=== PATIENT | female | born 1945 | race Caucasian/White ===

== ENCOUNTER 2021-08-12 12:51 | Outpatient (REF) | payer MEDICARE, BC, SELFPAY ==
--- NOTE | ~2021-08-12 | MM_ITS ---
EXAMINATION: MM SCREENING DIGITAL BREAST TOMOSYNTHESIS, BILATERAL CLINICAL INFORMATION: Screening. Asymptomatic. The lifetime risk of breast cancer based on the Tyrer-Cuzick Model is 1%. COMPARISON: Mammography: None TECHNIQUE: Digital breast tomosynthesis is performed in both the craniocaudal and mediolateral oblique views along with computer-aided detection (CAD). Synthesized 2D images are generated from the tomosynthesis. FINDINGS: The breasts are almost entirely fatty (ACR BI-RADS breast composition Category a). No suspicious mass or grouping of microcalcifications is seen within the right breast. Within the left breast inferiorly, there is a 3 mm partially circumscribed, slightly lobular density for which ultrasound is recommended. About the upper outer aspect of the left breast, there is a circumscribed 5 mm density approximately 6 cm from the nipple which may represent intramammary lymph node. Ultrasound of this is also recommended. MM/MM tomosynthesis screening BI IMPRESSION: 2 left breast densities for further evaluation with ultrasound. ASSESSMENT: BI-RADS 0: Incomplete - Need Additional Imaging Evaluation RECOMMENDATION: Targeted left breast ultrasound
== END 2021-08-12 12:52 | disposition home or self-care (01) ==
LOC: HO.MAMMO 12:51
PROVIDERS: PCP Internal Medicine; Visit Provider Internal Medicine
DX: Z12.31 Encounter for screening mammogram for malignant neoplasm of breast (principal)
CPT/HCPCS: 77063; 77067

== ENCOUNTER 2021-08-26 10:34 | Outpatient (REF) | payer MEDICARE, BC, SELFPAY ==
--- NOTE | ~2021-08-26 | US_ITS ---
EXAMINATION: US DIAGNOSTIC ULTRASOUND BREAST, LEFT CLINICAL INFORMATION: Recall from screening for 2 nodules left breast mid 1:00 and mid 6:00 position, respectively. COMPARISON: Mammography 08/12/2021; outside mammography 02/05/2018, 01/30/2017, 12/21/2014 ([facility]). TECHNIQUE: Ultrasound of the left breast is performed with real-time chairez scale imaging and color Doppler. Imaging is targeted to the 10:00 through 2:00 position as well as the 4:00 through 6:00 position. Patient is imaged supine and semiupright with arm both up and down. FINDINGS: Neither nodule is visualized with ultrasound. There is no cystic or solid mass or architectural abnormality or focal duct ectasia. The respective of the biopsy ultrasound correlate, the nodularity for recall are both stable from prior outside mammograms dating back to 2014 consistent with benign findings. Results are discussed with the patient at time of visit. US/US breast LT limited IMPRESSION: Although no ultrasound correlate is demonstrated for the 2 circumscribed nodules left breast, comparison with remote outside mammography demonstrates no change consistent with benign nodularity. ASSESSMENT: BI-RADS 2: Benign RECOMMENDATION: Routine annual mammography screening. This patient's information was entered into a reminder system with a target due date for their next mammogram.
== END 2021-08-26 10:35 | disposition home or self-care (01) ==
LOC: HO.MAMMO 10:34
PROVIDERS: PCP Internal Medicine; Visit Provider Internal Medicine
DX: N63.21 Unspecified lump in the left breast, upper outer quadrant (principal); N63.20 Unspecified lump in the left breast, unspecified quadrant
CPT/HCPCS: 76642

== ENCOUNTER 2021-11-12 08:50 | Outpatient (REF) | payer MEDICARE, BC, SELFPAY ==
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
== END 2021-11-12 08:51 | disposition home or self-care (01) ==
LOC: HO.SH 08:50
PROVIDERS: Visit Provider Internal Medicine
DX: H90.3 Sensorineural hearing loss, bilateral (principal)
CPT/HCPCS: 92557; 92567

== ENCOUNTER 2024-07-25 13:58 | Outpatient (REF) | payer MEDICARE, SELFPAY ==
--- OUTSIDE RECORDS SUMMARY | 2024-07-25 16:37 | XMS_ITS | Encounter Summary ---
Author Organization [employer] Address [address] [facility] 7[address] [place] [address] Care Team Providers Care Cable Ferryboat Operator Name Role Phone Lis Lau MD Primary Care Provider [phone] Reason for Visit * Reason Comments Med Refill Encounter Details Date Type Department Care Team ([facility] st Contact Info) Description 07/18/[address] [facility] [address] [place] [address] Lis Lau MD [address] [place] [address] Social History Tobacco Use Types Packs/Day Years Used Date Smoking Tobacco: Never Smokeless Tobacco: Never Alcohol Use Standard Drinks/Week Comments Never 0 (1 standard drink = 0.6 oz pur e alcohol) Housing Stability Answer Date Recorded What is your housing situation today? I have mike sellers 02/17/[address] you li ve. Do you have problems with any of the following? None of the above 02/17/2024 Food Insecurity Answer Date Recorded Within the past 12 months, y ou worried that your food would run out before you got money to buy more: Never True 02/17/2024 Within the past 12 months,th e food you bought just didn't last and you didn't have enough money to get more: Never True Transportation Answer Date Recorded In the past 12 months, has l ack of transportation kept you from medical appts, meetings, work or from getting things needed for daily living? No 02/17/2024 Utilities Answer Date Recorded In the past 12 months, has t he electric, gas, oil or water company threatened to shut off services in your home? No 02/17/2024 Internet Access Answer Date Recorded Internet Access Q1 No 02/17/2024 Internet Access Q2 I do not want or need it 01/24 Comments Unknown Sex and Gender Information Value Date Recorded Sex Assigned at Female 03/24/2022 10:36 AM EDT Legal Sex Female 10:36 AM EDT Gender Identity Female 03/24/2022 10:36 AM EDT Sexual Orientation Don't know 03/24/2022 10 :36 AM EDT documented as of this encounter Plan of Treatment Not on file documented as of this encounter Visit Diagnoses Not on filedocumented in this encounter Care Teams Cable Ferryboat Operator Relationship Specialty Start Date End Date Lis Lau MD [address] [place] [id number] PCP - General Internal Medicine 03/28/19 documented as of this encounter
--- OUTSIDE RECORDS SUMMARY | 2024-07-25 16:37 | XMS_ITS | Encounter Summary ---
Author Organization [employer] Address [address] [facility] 7t [place] [address] Care Team Providers Care Insurance Claim Auditor Name Role Phone Lis Lau MD Primary Care Provider [phone] Reason for Visit * Reason Comments Med Refill Encounter Details Date Type Department Care Team (Late st Contact Info) Description 06/01/2023 Refill [facility] PEDS [address] [place] [address] Lis Lau MD [address] [place] [address] Social History Tobacco Use Types Packs/Day Years Used Date Smoking Tobacco: Never Assessed Comments Unknown Sex and Gender Information Value [...] on filedocumented in this encounter Care Teams Insurance Claim Auditor Relationship Specialty Start Date End Date Lis Lau MD [address] [place] [address] PCP - General Internal Medicine 03/28/19 documented as of this encounter
--- OUTSIDE RECORDS SUMMARY | 2024-07-25 16:37 | XMS_ITS | Encounter Summary ---
Author Organization [employer] Address [address] [facility] [address] [place] [address] Care Team Providers Care Bit Grinder Name Role Phone Lis Lau MD Primary Care Provider [phone] Reason for Visit * Reason Comments Med Refill Encounter Details Date Type Department Care Team (Late st Contact Info) Description 01/08/2024 Refill [facility] MED & PEDS [address] [place] [address] Lis Lau MD [address] [place] [address] Essential (primary) hypertension Social History Tobacco Use Types Packs/Day Years [...] documented as of this encounter Visit Diagnoses Diagnosis Essential (primary) hypertension Unspecified essential hypertension documented in this encounter Care Teams Bit Grinder Relationship Specialty Start Date End Date Lis Lau MD [address] [place] [address] PCP - General Internal Medicine 03/28/19 documented as of this encounter
--- OUTSIDE RECORDS SUMMARY | 2024-07-25 16:37 | XMS_ITS | Encounter Summary ---
Author Organization [employer] Address [address] [place] [address] [address] [place] [address] Care Team Providers Care Circulation Tender Name Role Phone Lis Lau MD Primary Care Provider [phone] Reason for Referral * Consultation (Routine) - Pending Review Specialty Diagnoses / Procedures Referred By Sj oneil Referred To Contact Neurology Diagnoses Memory disturbance Lis Lau MD [address] [place] [address] Phone: tel: fax: Referral ID Status Reason Start Date Expiration Date Visits Requested Visits Authorized [id number] Pending Review Specialty Services Required 07/25/2024 07/25/2025 1 1 Reason for Visit * Reason Comments Follow-up Encounter Details Date Type Department Care Team (Latest Contact Info) Description 07/25/2024 1:00 PM EST Office Visit [facility] MED & PEDS [address] [place] [address] Lis Lau MD [address] [place] [address] Hypercholesterolemia (Primary Dx); Primary hypertension; Dietary counseling; Exercise counseling; Memory disturbance; Encounter for immunization Social History Tobacco Use Types Packs/Day Years Used Date Smoking Tobacco: Never Smokeless Tobacco: Never Alcohol Use Standard Drinks/Week Comments Never 0 (1 standard drink = 0.6 oz pur e alcohol) Depression Answer Date Recorded Patient Health Questionnaire-9 Score 0 07/25/2024 Patient Health Questionnaire-9 Score 0 07/25/2024 Last PHQ-9: Questionnaire Data Not on file 0 07/25/2024 Housing Stability Answer Date Recorded What is [...] off services in your home? No 02/17/2024 Depression Answer Date Recorded Patient Health Questionnaire-2 Score 0 07/25/2024 Internet Access Answer Date Recorded Internet Access [...] AM EDT documented as of this encounter Last Filed Vital Signs Vital Sign Reading Time Taken Comments Blood Pressure 184/66 07/25/2024 1:14 PM EST Pulse 62 07/25/2024 1:14 PM EST Temperature 36.6 ??C (97.9 ??F) 07/25/2024 1:14 PM ES T Respiratory Rate 20 07/25/2024 1:14 PM EST Oxygen Saturation 94% 07/25/2024 1:14 PM EST Inhaled Oxygen Concentration - - Weight 60.3 kg (133 lb) 07/25/2024 1:14 PM EST Height 156.2 cm (5' 1.5 ) 07/25/2024 1:14 PM EST Body Mass Index 24.72 07/25/2024 1:14 PM EST documented in this encounter Plan of Treatment Scheduled Orders Name Type Priority Associated Diagnoses Orde r Schedule Vitamin B12/Folate, Serum Panel Lab Routine Memory disturbance Expected: 07/25/2024, Expires: 07/25/2025 Scheduled Referrals Name Type Priority Associated Diagnoses Orde r Schedule Referral to Neurology Outpatient Referral Routine Memory disturbance Expected: 07/25/2024 (Approximate), Expires: 07/25/2025 documented as of this encounter Visit Diagnoses Diagnosis Hypercholesterolemia- Primary Pure hypercholesterolemia Primary hypertension Unspecified essential hypertension Dietary counseling Dietary surveillance and counseling Exercise counseling Memory disturbance Memory loss Encounter for immunization documented in this encounter Additional Health Concerns Assessment Noted Time PHQ-9 Depression Total Score: 0 07/26/19 25 2:13 PM EST documented as of this encounter Care Teams Circulation Tender Relationship Specialty Start Date End Date Lis Lau MD [address] [place] [phone] PCP - General Internal Medicine 03/28/19 documented as of this encounter
--- OUTSIDE RECORDS SUMMARY | 2024-07-25 16:37 | XMS_ITS | Encounter Summary ---
Author Organization [employer] Address [address] [facility] [address] [place] [address] Care Team Providers Care Grinder Chipper Name Role Phone Lis Lau MD Primary Care Provider [phone] Encounter Details Date Type Department Care Team ([facility] st Contact Info) Description 10/01/2022 Orders Only [facility] CH[facility] MED & PEDS [address] [place], [place] [phone] Marita Carmona LPN Social History Tobacco Use Types Packs/Day Years [...] on filedocumented in this encounter Care Teams Grinder Chipper Relationship Specialty Start Date End Date Lis Lau MD [address] [place] [address] PCP - General Internal Medicine 03/28/19 documented as of this encounter
--- OUTSIDE RECORDS SUMMARY | 2024-07-25 16:37 | XMS_ITS | Encounter Summary ---
Author Organization [employer] Address [address] [facility] [address] [place] [address] Care Team Providers Care Tennis Centre Manager Name Role Phone Lis Lau MD Primary Care Provider [phone] Encounter Details Date Type Department Care Team (Latest Contact Info) Description 07/25/2024 Travel Social History Tobacco Use Types Packs/Day Years [...] Diagnoses Not on filedocumented in this encounter Additional Health Concerns Assessment Noted Time PHQ-9 Depression Total Score: 0 07/26/19 25 2:13 PM EST documented as of this encounter Care Teams Tennis Centre Manager Relationship Specialty Start Date End Date Lis Lau MD [address] [place] [address] PCP - General Internal Medicine 03/28/19 documented as of this encounter
--- OUTSIDE RECORDS SUMMARY | 2024-07-25 16:37 | XMS_ITS | Encounter Summary ---
Author Organization [employer] Address [address] [facility] [address] [place] [address] Care Team Providers Care Instrument Repair Specialist Name Role Phone Lis Lau MD Primary Care Provider [phone] Reason for Visit * Reason Onset Date Comments chart prep 07/22/2024 Encounter Details Date Type Department Care Team ([facility] Contact Info) Description 07/22/2024 Telephone [facility] MED [facility] P[facility] [address] [place] [address] Lis Lau MD [address] [place] [address] chart prep Social History Tobacco Use Types Packs/Day Years Used Date Smoking Tobacco: Never Smokeless Tobacco: Never Alcohol Use Standard Drinks/Week Comments Never 0 (1 standard drink = 0.6 oz pur e alcohol) Housing Stability Answer Date Recorded What is your housing situation today? I have mike[employer] sellers 02/17/[address] you [...] the past 12 months, has t he [email or web address], gas, oil or water [employer] threatened to shut off services in your [...] AM EDT documented as of this encounter Miscellaneous Notes * Telephone Encounter - Alexia Turk [place] - 07/22/2024 9:02 AM EST Chart Prep Labs: not done Images: done Vaccines due: yes Referrals: complete Screenings: Overdue care gaps: Sbirt, SDOH, PHQ-9 documented in this encounter Plan of Treatment Not on file documented as of this encounter Visit Diagnoses Not on filedocumented in this encounter Care Teams Instrument Repair Specialist Relationship Specialty Start Date End Date Lis Lau MD [address] [place] [id number] PCP - General Internal Medicine 03/28/19 documented as of this encounter
--- OUTSIDE RECORDS SUMMARY | 2024-07-25 16:37 | XMS_ITS | Clinical Summary ---
Author Organization [employer] Address [address] [facility] 7t [place] [address] Care Team Providers Care Salesperson Furs Name Role Phone Lis Lau MD Primary Care Provider [phone] Allergies Active Allergy Reactions Criticality Noted Date Comments Penicillin G Rash Low 02/25/2024 Medications metoprolol succinate XL (Toprol-XL) 50 MG 24 hr tabletIndication s:Essential (primary) hypertension TAKE 1 TABLET BY MOUTH EVERY DAY 90 tablet 4 Active metoprolol succinate XL (Toprol-XL) 50 MG 24 hr tablet Take 1 tablet (50 mg) by mouth Once per day. Do not crush or chew. 30 tablet 11 4 Active KLOR-CON 20 MEQ ER tablet TAKE 1 TABLET BY MOUTH EVERY DAY WITH FOOD 90 tablet 3 4 Active hydroCHLOROthiaz victorino (HYDRODiuril) 25 MG tabletIndication s:Essential (primary) hypertension Take 1 tablet (25 mg) by mouth Once per day. 90 tablet 3 4 Active citalopram (CeleXA) 10 MG tablet TAKE 1 TABLET (10 MG) BY MOUTH ONCE PER DAY. 90 tablet 1 5 Active Blood Pressure kit To check the BP 3 times a week. 1 kit 5 Active citalopram (CeleXA) 10 MG tablet Take 1 tablet (10 mg) by mouth Once per day. 90 tablet 1 4 025 Discontinued Active Problems Problem Noted Date Diagnosed Date Cobalamin deficiency 12/28/2023 Hypercholesterolemia 12/28/2023 Hypertensive disorder 12/28/2023 Hypokalemia 12/28/2023 IFG (impaired fasting glucose) 12/28/2023 Vitamin D deficiency 12/28/2023 Encounters Date Type Department Care Team Description 07/25/2024 1:00 PM EST Office Visit [facility] [address] [place] [address] Lis Lau MD Hypercholesterolemia (Primary Dx); Primary hypertension; Dietary counseling; Exercise counseling; Memory disturbance; Encounter for immunization 07/25/2024 Travel 07/22/2024 Telephone [facility] [address] [place], [place] [phone] Lis Lau MD chart prep 07/18/2024 Refill [facility] [address] [place], [place] [phone] Lis Lau MD 06/06/2024 Telephone [facility] [address] [place] [address] Lis Lau MD recall appt (Pt needs appt) from Last 3 Months Immunizations Name Administration Dates Next Due Moderna Covid-19 Vaccine 12+ 09/10/2021,08/13/19 22 Tdap 07/25/2024 Social History Tobacco Use Types Packs/Day Years Used Date Smoking Tobacco: Never Smokeless Tobacco: Never Tobacco Cessation:Counseling Given: No Alcohol Use Standard Drinks/Week Comments Never 0 (1 standard drink = 0.6 oz pur e alcohol) Depression Answer Date Recorded Patient Health Questionnaire-9 Score 0 07/25/2024 Patient Health Questionnaire-9 Score 0 07/25/2024 Last PHQ-9: Questionnaire Data Not on file 0 07/25/2024 Housing Stability Answer Date Recorded What is your housing situation today? I have mike marlo 02/17/[address] you li [...] Don't know 03/24/2022 10 :36 AM EDT Last Filed Vital Signs Vital Sign Reading [...] Mass Index 24.72 07/25/2024 1:14 PM EST Plan of Treatment Health Maintenance Due Date Last Done Comments Zoster Vaccines (1 of 2) 1994 RSV Patients and Patients Aged 60 years or older (1 - 1-dose 75+ series) 2019 Influenza Vaccine (#1) 2024 Postp oned from 01/24/2024 (Patient Refused) SDOH Screening 02/16/2025 02/17/2024 COVID-19 Vaccine (3 - 2023-2 5 season) 2025 09/10/2021, 08/12/2021 Postponed from 01/24/2024 (Patient Refused) Pneumococcal Vaccine: 50+ Years (1 of 1 - PCV) 02/24/2025 Postponed from 05/27 (Patient Refused) Alcohol/Substance Use Screening 07/25/2025 07/25/2024 Depression Screening 07/25/2025 07/25/2024, 07/25/2024 Tobacco Screening 07/25/2025 07/25/2024 Lipid Panel 03/29/2026 03/29/2021 DTaP/Tdap/Td Vaccines (2 - T d or Tdap) 07/25/2034 07/25/2024 HIB Vaccines Aged Out No longer eligi ble based on patient's age to complete this topic HPV Vaccines Aged Out No longer eligi ble based on patient's age to complete this topic Hepatitis A Vaccines Aged Out No long er eligible based on patient's age to complete this topic Hepatitis B Vaccines Aged Out No long er eligible based on patient's age to complete this topic IPV Vaccines Aged Out No longer eligi ble based on patient's age to complete this topic Meningococcal Vaccine Aged Out No nikko bernard eligible based on patient's age to complete this topic RSV under 20 months Aged Out No longe r eligible based on patient's age to complete this topic Rotavirus Vaccines Aged Out No longer eligible based on patient's age to complete this topic Procedures Procedure Name Priority Date/Time Associated Diagnosis Comments LIPID PANEL, STANDARD Routine 03/29/2021 10:04 AM EDT from Last 3 Months or Most Recently Relevant to Health Maintenance Results * (ABNORMAL) LIPID PANEL, STANDARD (03/29/2021 10:04 AM EDT) Chol/HDLC Ratio 4.8 <5.0 (calc) [facility] Cholesterol, Total 222(H) <200 mg/dL [facility] HDL Cholesterol 46(L) > OR = 50 mg/dL [facility] LDL Cholesterol 138(H) mg/dL (calc) [facility] Comment: Reference range: <100 ?? Desirable range <100 mg/dL for primary prevention; ?? <70 mg/dL for patients with CHD or diabetic patients ?? with > or = 2 CHD risk factors. ?? LDL-C is now calculated using the Madhav-Covarruibas ?? calculation, which is a validated novel method providing ?? better accuracy than the Friedewald equation in the ?? estimation of LDL-C. ?? Madhav PACHECO et al. IFRAH. 2013;310(19): 6753-8232 ?? (http://[employer] Water.Acunote/faq/DZF583) Non-HDL Cholesterol 176(H) <130 mg/dL (calc) [facility] Comment: For patients with diabetes plus 1 major ASCVD risk ?? factor, treating to a non-HDL-C goal of <100 mg/dL ?? (LDL-C of <70 mg/dL) is considered a therapeutic ?? option. Triglycerides 237(H) <150 mg/dL [facility] Comment: ?? If a non-fasting specimen was collected, consider repeat triglyceride testing on a fasting specimen if clinically indicated. ?? Ant et al. J. of Clin. Lipidol. 2015;9:129-169. ?? 03/29/2021 10:0 4 AM EDT Lis Lau MD LAB BLOOD ORDERABLES Final Result Performing Organization Address City/State/[facility] Co de Phone Number [facility] [address] from Last 3 Months or Most Recently Relevant to Health Maintenance Insurance [place] [address] [place] [id number] Care Teams Salesperson Furs Relationship Specialty Start Date End Date Lis Lau MD [address] [place] [id number] PCP - General Internal Medicine 03/28/19
--- OUTSIDE RECORDS SUMMARY | 2024-07-25 16:37 | XMS_ITS | Encounter Summary ---
Author Organization [employer] Address [address] [facility] 7t [place] [address] Care Team Providers Care Legal Activity Adjudicator Name Role Phone Lis Lau MD Primary Care Provider [phone] Reason for Visit * Reason Comments Med Refill Encounter Details Date Type Department Care Team (Late st Contact Info) Description 01/21/2024 Refill [facility] [address] [place] [address] Lis Lau MD [address] [place] [address] Social History Tobacco Use Types Packs/Day Years [...] on filedocumented in this encounter Care Teams Legal Activity Adjudicator Relationship Specialty Start Date End Date Lis Lau MD [address] [place] [address] PCP - General Internal Medicine 03/28/19 documented as of this encounter
--- OUTSIDE RECORDS SUMMARY | 2024-07-25 16:37 | XMS_ITS | Encounter Summary ---
Author Organization [employer] Address [address] [facility] 7t [place] [address] Care Team Providers Care Civil Engineering Draftsperson Name Role Phone Lis Lau MD Primary Care Provider [phone] Reason for Visit * Reason Comments Med Refill Encounter Details Date Type Department Care Team (Late st Contact Info) Description 01/02/2024 Refill [facility] [address] [place] [address] Lis Lau MD [address] [place] [address] Social History Tobacco Use Types Packs/Day Years [...] on filedocumented in this encounter Care Teams Civil Engineering Draftsperson Relationship Specialty Start Date End Date Lis Lau MD [address] [place] [address] PCP - General Internal Medicine 03/28/19 documented as of this encounter
--- OUTSIDE RECORDS SUMMARY | 2024-07-25 16:37 | XMS_ITS | Encounter Summary ---
Author Organization [employer] Address [address] [facility] 7t [place] [address] Care Team Providers Care Water Purifier Operator Name Role Phone Lis Lau MD Primary Care Provider [phone] Reason for Visit * Reason Comments Med Refill Encounter Details Date Type Department Care Team (Late st Contact Info) Description 01/01/2024 Refill [facility] PEDS [address] [place] [address] Lis Lau MD [address] [place] [address] Essential (primary) hypertension Social History Tobacco Use [...] hypertension documented in this encounter Care Teams Water Purifier Operator Relationship Specialty Start Date End Date Lis Lau MD [address] [place] [address] PCP - General Internal Medicine 03/28/19 documented as of this encounter
--- OUTSIDE RECORDS SUMMARY | 2024-07-25 16:37 | XMS_ITS | Encounter Summary ---
Author Organization [employer] Address [address] [facility] 7t [place] [address] Care Team Providers Care Film Crew Member Name Role Phone Lis Lau MD Primary Care Provider [phone] Reason for Visit * Reason Comments Med Refill Encounter Details Date Type Department Care Team (Late st Contact Info) Description 01/08/2024 Refill [facility] MED & PEDS [address] [place] [address] Lis Lau MD [address] [place] [address] Social History Tobacco Use Types Packs/Day Years [...] on filedocumented in this encounter Care Teams Film Crew Member Relationship Specialty Start Date End Date Lis Lau MD [address] [place] [address] PCP - General Internal Medicine 03/28/19 documented as of this encounter
[2024-07-25 17:51] LABS: MANUAL DIFF FLAG NO
[2024-07-25 18:05] LABS: Basophils Absolute Auto 0.1 X10*3/uL (0.0-0.2); Basophils Percent Auto 0.8 % (0-2); Eosinophils Absolute Auto 0.1 X10*3/uL (0.0-0.4); Eosinophils Percent Auto 1.9 % (0-4); Hematocrit 38.4 % (37.0-47.0); Imm Gran Abs Auto 0.01 X10*3/uL (0.00-0.03); Imm Gran Pct Auto 0.2 % (0.0-0.4); Lymphocytes Absolute Auto 2.5 X10*3/uL (1.2-4.9); Lymphocytes Percent Auto 42.2 % (20-40); Mean Corpuscular HGB Conc 31.3 g/dl (31.0-35.0); Mean Corpuscular Hemoglobin 25.7 pg (27.0-33.0); Mean Corpuscular Volume 82.2 fL (80.0-98.0); Mean Platelet Volume 9.6 fL (9.4-12.3); Monocytes Absolute Auto 0.6 X10*3/uL (0.1-1.2); Neutrophils Absolute Auto 2.7 x10*3/uL (2.0-8.3); Neutrophils Percent Auto 44.9 % (45-73); Platelet Count 306 X10*3/uL (160-400); Red Blood Count 4.67 X10*6/uL (4.20-5.50); Red Cell Distribution Width 14.6 % (11.0-16.0); White Blood Count 5.9 X10*3/uL (4.8-10.8)
[2024-07-25 18:20] LABS: Alanine Aminotransferase 16 U/L (0-31); Alkaline Phosphatase 67 U/L (39-117); Anion Gap 15 (12-20); Aspartate Amino Transferase 34 U/L (5-31); Bilirubin Total 0.7 mg/dL (0.0-1.0); Blood Urea Nitrogen 10 mg/dL (9-16); Calcium 9.4 mg/dL (8.4-10.2); Carbon Dioxide 27 mmol/L (22-29); Chloride 100 mmol/L (96-108); Cholesterol 201 mg/dL (<200); Estimated Glomerular Filt Rate > 60; Glucose Random 93 mg/dL (60-115); HDL Cholesterol 47 mg/dL (>40); LDL Cholesterol Calculated 127 mg/dL (<100); Potassium 3.5 mmol/L (3.3-5.1); Sodium 138 mmol/L (135-145); Total Protein 8.1 g/dL (6.5-8.0); Triglycerides 138 mg/dL (<150)
[2024-07-25 18:30] LABS: TSH reflex Free T4 0.75 uIU/mL (0.32-4.0); Vitamin D 25-OH Total 52.6 ng/mL (>30)
[2024-07-25 18:46] LABS: Vitamin B12 1057 pg/mL (200-900)
[2024-07-26 08:09] LABS: ~HepC Num1 0.37 S/CO (0.00-0.79); ~Hepatitis C Antibody Nonreactive (Nonreactive)
== END 2024-07-25 13:59 | disposition home or self-care (01) ==
LOC: HO.CHCLDS 13:58
PROVIDERS: Visit Provider Internal Medicine
DX: I10 Essential (primary) hypertension (principal); E78.00 Pure hypercholesterolemia, unspecified; E55.9 Vitamin D deficiency, unspecified; R41.3 Other amnesia
CPT/HCPCS: 36415; 80053; 80061; 82306; 82607; 82746; 84443; 85025; 86803

== ENCOUNTER 2024-08-31 09:29 | Outpatient (REF) | payer MEDICARE, SELFPAY ==
--- NOTE | ~2024-08-31 | US_ITS ---
CLINICAL HISTORY: Transaminitis US abdomen complete with duplex and color Doppler Comparison: None Findings: The visualized pancreas, aorta, and inferior vena cava are unremarkable. Liver normal size with coarse hepatic echotexture. Right lobe 11.3 cm length. No focal hepatic masses. Common duct 8.0 mm diameter. Gallbladder not visualizedborderline intrahepatic ductal dilatation. No sonographic Armenta sign. Main portal vein antegrade. Right kidney normal size, 10.1 cm in length. Normal cortical width and echotexture. No solid or cystic renal masses. No nephrolithiasis or hydronephrosis. Left kidney normal, 10.1 cm in length. Normal cortical width and echotexture. No solid or cystic renal masses. No nephrolithiasis or hydronephrosis. Spleen measures 7.0 cm. No splenic masses. No ascites. No lymphadenopathy. Impression: 1. Gallbladder is not visualized correlate with patient's surgical history. Mild intrahepatic ductal dilatation mildly prominent common bile duct with no evidence of choledocholithiasis but may be within normal limits if the patient has had a cholecystectomy. 2. No hepatomegaly. Coarse hepatic echotexture reflecting hepatic steatosis or diffuse hepatocellular disease. 3. Bowel gas obscures midline structures. Portions of the pancreas and abdominal aorta were not well visualized This document has been electronically signed by: Pantera Berrios MD on 08/31/2024 11:54:06
--- OUTSIDE RECORDS SUMMARY | 2024-08-31 10:16 | XMS_ITS | Encounter Summary ---
Author Organization [employer] Address [address] [place] [address] 7t [place] [address] Care Team Providers Care Revenue Integrity Analyst Name Role Phone Lis Lau MD Primary Care Provider [phone] Reason for Visit * Reason Comments Med Refill Encounter Details Date Type Department Care Team ([facility] Contact Info) Description 01/08/2024 Refill [facility] [address] [place] [address] Lis Lau MD [address] [place] [address] Essential (primary) hypertension Social History Tobacco Use Types Packs/Day Years Used Date Smoking Tobacco: Never Assessed Comments Unknown Sex and Gender Information Value Date Recorded Sex Assigned at Female 03/24/2022 10:36 AM EDT Legal Sex Female 10:36 AM EDT Gender Identity Female 03/24/2022 10:36 AM EDT Sexual Orientation Don't know 03/24/2022 10 :36 AM EDT documented as of this encounter Plan of Treatment Upcoming Encounters Date Type Department Care Team ([facility] Contact Info) Description 11/15/2024 10:30 AM EDT Office Visit [facility] [address] [place] [address] Lis Lau MD [address] [place] [address] documented as of this encounter Visit Diagnoses Diagnosis Essential (primary) hypertension Unspecified essential hypertension documented in this encounter Care Teams Revenue Integrity Analyst Relationship Specialty Start Date End Date Lis Lau MD [address] [place] [id number] PCP - General Internal Medicine 03/28/19 documented as of this encounter
--- OUTSIDE RECORDS SUMMARY | 2024-08-31 10:16 | XMS_ITS | Encounter Summary ---
Author Organization [employer] Address [address] [place] [address] 7t [place] [address] Care Team Providers Care Nuclear Medical Technologist Name Role Phone Lis Lau MD Primary Care Provider [phone] Reason for Visit * Reason Comments Med Refill Encounter Details Date Type Department Care Team ([facility] Contact Info) Description 01/01/2024 Refill [facility] [address] [place] [address] Lis Lau MD [address] [place] [address] Essential (primary) hypertension Social History Tobacco Use [...] Upcoming Encounters Date Type Department Care Team ([facility] Contact Info) Description 11/15/2024 10:30 AM EDT Office Visit [facility] [address] [place] [address] Lis Lau MD [address] [place] [address] documented as of this encounter Visit Diagnoses Diagnosis Essential (primary) hypertension Unspecified essential hypertension documented in this encounter Care Teams Nuclear Medical Technologist Relationship Specialty Start Date End Date Lis Lau MD [address] [place] [id number] PCP - General Internal Medicine 03/28/19 documented as of this encounter
--- OUTSIDE RECORDS SUMMARY | 2024-08-31 10:16 | XMS_ITS | Encounter Summary ---
Author Organization [employer] Address [address] [place] [address] [address]t [place] [address] Care Team Providers Care Garment Presser Name Role Phone Lis Lau MD Primary Care Provider [phone] Reason for Visit * Reason Comments Med Refill Encounter Details Date Type Department Care Team ([facility] Contact Info) Description 01/02/2024 Refill [facility] MED & PEDS [address] [place] [address] Lis Lau MD [address] [place] [address] Social History Tobacco Use Types Packs/Day Years [...] Upcoming Encounters Date Type Department Care Team ([facility] Contact Info) Description 11/15/2024 10:30 AM EDT Office Visit [facility] [address] [place] [address] Lis Lau MD [address] [place] [address] documented as of this encounter Visit Diagnoses Not on filedocumented in this encounter Care Teams Garment Presser Relationship Specialty Start Date End Date Lis Lau MD [address] [place] [address] PCP - General Internal Medicine 03/28/19 documented as of this encounter
--- OUTSIDE RECORDS SUMMARY | 2024-08-31 10:16 | XMS_ITS | Encounter Summary ---
Author Organization [employer] Address [address] [place] [address] 7 [place] [address] Care Team Providers Care Business Support Manager Name Role Phone Lis Lau MD Primary Care Provider [phone] Encounter Details Date Type Department Care Team (Late Contact Info) Description 10/01/2022 Orders Only [facility] MED & PEDS [address] [place] [address] Marita Carmona LPN Social History Tobacco Use [...] Upcoming Encounters Date Type Department Care Team (Late st Contact Info) Description 11/15/2024 10:30 AM EDT Office Visit [facility] [address] [place] [address] Lis Lau MD [address] [place] [address] documented as of this encounter Visit Diagnoses Not on filedocumented in this encounter Care Teams Business Support Manager Relationship Specialty Start Date End Date Lis Lau MD [address] [place] [address] PCP - General Internal Medicine 03/28/19 documented as of this encounter
--- OUTSIDE RECORDS SUMMARY | 2024-08-31 10:16 | XMS_ITS | Encounter Summary ---
Author Organization [employer] Address [address] [place] [address] 7t [place] [address] Care Team Providers Care Electromechanical Technician Name Role Phone Lis Lau MD Primary Care Provider [phone] Reason for Visit * Reason Comments Med Refill Encounter Details Date Type Department Care Team ([facility] Contact Info) Description 06/01/2023 Refill [facility] MED & PEDS [address] [place] [address] Lis Lau MD [address] [place] [address] Social History Tobacco Use Types Packs/Day Years [...] Upcoming Encounters Date Type Department Care Team ([facility] Contact Info) Description 11/15/2024 10:30 AM EDT Office Visit [facility] PEDS [address] [place] [address] Lis Lau MD [address] [place] [address] documented as of this encounter Visit Diagnoses Not on filedocumented in this encounter Care Teams Electromechanical Technician Relationship Specialty Start Date End Date Lis Lau MD [address] [place] [address] PCP - General Internal Medicine 03/28/19 documented as of this encounter
--- OUTSIDE RECORDS SUMMARY | 2024-08-31 10:16 | XMS_ITS | Clinical Summary ---
Author Organization [employer] [facility] Address [address] [facility] 7t [place] [address] Care Team Providers Care Car Salter Name Role Phone Lis Lau MD Primary Care Provider [phone] Allergies Active Allergy Reactions Criticality Noted Date Comments Penicillin G Rash Low 02/25/2024 Medications metoprolol succinate XL (Toprol-XL) 50 MG 24 hr tabletIndications :Essential (primary) hypertension TAKE 1 TABLET BY MOUTH EVERY DAY 90 tablet 09/23/2023 Active metoprolol succinate XL (Toprol-XL) 50 MG 24 hr tablet Take 1 tablet (50 mg) by mouth Once per day. Do not crush or chew. 30 tablet 11 02/02/2024 Active KLOR-CON 20 MEQ ER tablet TAKE 1 TABLET BY MOUTH EVERY DAY WITH FOOD 90 tablet 3 02/15/2024 Active hydroCHLOROthiazi de (HYDRODiuril) 25 MG tabletIndications :Essential (primary) hypertension Take 1 tablet (25 mg) by mouth Once per day. 90 tablet 3 02/15/2024 Active citalopram (CeleXA) 10 MG tablet TAKE 1 TABLET (10 MG) BY MOUTH ONCE PER DAY. 90 tablet 1 07/19/2024 Active Blood Pressure kit To check the BP 3 times a week. 1 kit 07/25/2024 Active Active Problems Problem Noted Date Diagnosed Date Cobalamin deficiency 12/28/2023 Hypercholesterolemia 12/28/2023 Hypertensive disorder 12/28/2023 Hypokalemia 12/28/2023 IFG (impaired fasting glucose) 12/28/2023 Vitamin D deficiency 12/28/2023 Encounters Date Type Department Care Team Description 08/05/2024 Population Health Risk Score [facility] (C3) [address] [phone] Provider, Population Health Generic 07/26/2024 Telephone [facility] [address] [place] [phone] Lis Lau MD Results 07/25/2024 1:00 PM EST Office Visit [facility] [address] [place] [address] Lis Lau MD Hypercholesterolemia (Primary Dx); Primary hypertension; Dietary counseling; Exercise counseling; Memory disturbance; Encounter for immunization 07/25/2024 Orders Only [facility] [address] [place] [phone] Lis Lau MD Transaminitis (Primary Dx); Encounter for screening for other viral diseases 07/25/2024 Travel 07/22/[address] [facility] [address] [place] [address] Lis Lau MD chart prep 07/18/2024 Refill [facility] [address] [place] [phone] Lis Lau MD 06/06/[address] [facility] [address] [place] [address] Lis Lau MD recall appt (Pt needs [...] 07/25/2024 1:14 PM EST Plan of Treatment Upcoming Encounters Date Type Department Care Team (Late st Contact Info) Description 11/15/2024 10:30 AM EDT Office Visit [facility] [address] [place] [address] Lis Lau MD [address] [place] [phone] Health Maintenance Due Date Last Done Comments [...] 07/25/2024 Tobacco Screening 07/25/2025 07/25/2024 Lipid Panel 07/25/2029 07/25/2024, 03/29/2021 DTaP/Tdap/Td Vaccines (2 - T d [...] Procedure Name Priority Date/Time Associated Diagnosis Comments VITAMIN B12/FOLATE, SERUM PANEL Routine 07/25/2024 2:02 PM EST Memory disturbance VITAMIN D,25-OH,TOTAL,IA Routine 07/25/2024 2:02 PM EST Primary hypertension Vitamin D deficiency TSH W/REFLEX TO FT4 Routine 07/25/2024 2 :02 PM EST Primary hypertension Vitamin D deficiency HEPATITIS C AB W/REFL TO HCV RNA, QN, PCR Routine 07/25/2024 2:02 PM EST Primary hypertension Vitamin D deficiency LIPID PANEL, STANDARD Routine 07/25/2024 2:02 PM EST Hypercholesterolemia COMPREHENSIVE METABOLIC PANEL Routine 07/25/2024 2:02 PM EST Primary hypertension CBC WITH AUTO DIFFERENTIAL Routine 07/25/2024 2:02 PM EST Primary hypertension from Last 3 Months Results * Vitamin D, 25-Hydroxy, Total, Immunoassay (07/25/2024 2:02 PM EST) Vitamin D 25-OH Total 52.6 >30 ng/mL [facility] Comment:Health Based Referen ce Values*< 20 ng/mL Bcyvunkak03-19 ng/mL Insufficient> 30 ng/mL Sufficient*Isabel GOMES. N Engl J Med. 2007;357:266-280Care must be taken in interpreting Vitamin D results fromdifferent laboratories and methodologies. Published datademonstrated that results from patients undergoinghemodialysis may show a negative bias when tested withvarious automated 25-OH vitamin D assays when compared toLC-MS/MS.When testing samples from patients whose predominant form ofVitamin D is Vitamin D2, such as patients receiving VitaminD2 supplementation, results that are subtherapeutic shouldbe confirmed with another method such as LC-MS/MS. Blood Venous blood specimen / Unknown 07/25/2024 2:02 PM EST 07/25/2024 5:45 PM EST us Lis Lau MD LAB BLOOD ORDERABLES Final Result [facility] [address] [place] [phone] * (ABNORMAL) Vitamin B12/Folate, Serum Panel (07/25/2024 2:02 PM EST) Pathologist [facility] Vitamin B12 1,057(H) 200 - 900 pg/mL [facility] Comment:NORMAL 200-900 PG/ML INDETERMINATE 160-199 PG/ML DEFICIENT < 160 PG/ML Folate 8.0 > or = 4.0 ng/mL [facility] Comment:Reference Values:> o r = 4.0 ng/mL< 4.0 ng/mL suggests folate deficiency Methotrexate, aminopterin and folinic acid(leucovorin) are chemotherapeutic agents whose molecularstructures are similar to folate; therefore, the Architectfolate assay cannot be used for patients using these drugs. Blood Venous blood specimen / Unknown 07/25/2024 2:02 PM EST 07/25/2024 5:45 PM EST us Lis Lau MD LAB BLOOD ORDERABLES Final Result [facility] [address] [place] [phone] * TSH W/Reflex to FT4 (07/25/2024 2:02 PM EST) [facility] TSH reflex Free T4 0.75 0.32 - 4.0 uIU/mL [facility] Blood Venous blood specimen / Unknown 07/25/2024 2:02 PM EST 07/25/2024 5:45 PM EST us Lis Lau MD LAB BLOOD ORDERABLES Final Result [facility] [address] [place] [phone] * (ABNORMAL) CBC auto differential (07/25/2024 2:02 PM EST) [facility] White Blood Count 5.9 4.8 - 10.8 X10*3/uL [facility] Red Blood Count 4.67 4.20 - 5.50 X10*6/uL [facility] Hemoglobin 12.0 12.0 - 16.0 g/dl [facility] Hematocrit 38.4 37.0 - 47.0 % [facility] Mean Corpuscular Volume 82.2 80.0 - 98.0 fL [facility] Mean Corpuscular Hemoglobin 25.7(L) 27.0 - 33.0 pg [facility] Mean Corpuscular HGB Conc 31.3 31.0 - 35.0 g/dl [facility] Red Cell Distribution Width 14.6 11.0 - 16.0 % [facility] Platelet Count 306 160 - 400 X10*3/uL [facility] Mean Platelet Volume 9.6 9.4 - 12.3 fL [facility] Neutrophils Percent Auto 44.9(L) 45 - 73 % [facility] Imm Gran Pct Auto 0.2 0.0 - 0.4 % [facility] Lymphocytes Percent Auto 42.2(H) 20 - 40 % [facility] Monocytes Percent Auto 10.0 2 - 11 % [facility] Eosinophils Percent Auto 1.9 0 - 4 % [facility] Basophils Percent Auto 0.8 0 - 2 % [facility] NRBC Pct Auto 0.0 0.0 - 0.2 /100WBC [facility] Neutrophils Absolute Auto 2.7 2.0 - 8.3 x10*3/uL [facility] Imm Gran Abs Auto 0.01 0.00 - 0.03 X10*3/uL [facility] Lymphocytes Absolute Auto 2.5 1.2 - 4.9 X10*3/uL [facility] Monocytes Absolute Auto 0.6 0.1 - 1.2 X10*3/uL [facility] Eosinophils Absolute Auto 0.1 0.0 - 0.4 X10*3/uL [facility] Basophils Absolute Auto 0.1 0.0 - 0.2 X10*3/uL [facility] NRBC Abs Auto 0.000 0.0 - 0.012 X10*3/uL [facility] Blood Venous blood specimen / Unknown 07/25/2024 2:02 PM EST 07/25/2024 5:45 PM EST us Lis Lau MD LAB BLOOD ORDERABLES Final Result Performing Organization Address City/[facility]/ZIP Co de Phone Number [facility] [address] [place] [phone] * Hepatitis C Antibody with Reflex to HCV, RNA, Quantitative, Real-Time PCR (07/25/2024 2:02 PM EST) Hepatitis C Antibody Nonreactive Nonreactive [facility] Comment:Antibodies to HCV no t detected; does not exclude early acuteHCV infection. Blood Venous blood specimen / Unknown 07/25/2024 2:02 PM EST 07/25/2024 5:45 PM EST us Lis Lau MD LAB BLOOD ORDERABLES Final Result Performing Organization Address City/[facility]/ZIP Co de Phone Number [facility] [address] [place] [phone] * (ABNORMAL) Lipid Panel, Standard (07/25/2024 2:02 PM EST) Triglycerides 138 <150 mg/dL [facility] Comment:Desirable Triglyceri de: less than 150 mg/dLBorderline High Triglyceride 150-199 mg/dLHigh Triglyceride: 200-499 mg/dLVery High Triglyceride: greater than or equal to 5OO mg/dL Cholesterol 201(H) <200 mg/dL [facility] Comment:Desirable Cholestero l: less than 200 mg/dLBorderline High Cholesterol: 200-239 mg/dLHigh Cholesterol: greater than 239 mg/dL LDL Cholesterol Calculated 127(H) <100 mg/dL [facility] Comment:Desirable LDL: less than 100 mg/dLNear Optimal/Above Optimal LDL: 110- 129 mg/dLBorderline High LDL: 130-159 mg/dLHigh LDL: 160-189 mg/dLVery High LDL: greater than or equal to 190 mg/dL HDL Cholesterol 47 >40 mg/dL [facility] Comment:Desirable HDL: great er than 40 mg/dL Note: This HDL assay may give artificially low results in patients with liver disease. Blood Venous blood specimen / Unknown 07/25/2024 2:02 PM EST 07/25/2024 5:45 PM EST us Lis Lau MD LAB BLOOD ORDERABLES Final Result [facility] [address] [place] [phone] * (ABNORMAL) Comprehensive Metabolic Panel (07/25/2024 2:02 PM EST) Sodium 138 135 - 145 mmol/L [facility] Potassium 3.5 3.3 - 5.1 mmol/L [facility] Chloride 100 96 - 108 mmol/L [facility] Carbon Dioxide 27 22 - 29 mmol/L [facility] Anion Gap 15 12 - 20 [facility] Urea Nitrogen (BUN) 10 9 - 16 mg/dL [facility] Creatinine, Serum 0.71 0.5 - 1.4 mg/dL [facility] Estimated Glomerular Filt Rate >60 [facility] Comment:Chronic Kidney Disea se: Estimated GFR < 60 mL/min/1.15h2Gbvxpc Kidney Disease: Estimated GFR < 15 mL/min/1.73m2 Glucose 93 60 - 115 mg/dL [facility] Calcium 9.4 8.4 - 10.2 mg/dL [facility] Bilirubin, Total 0.7 0.0 - 1.0 mg/dL [facility] Aspartate Amino Transferase 34(H) 5 - 31 U/L [facility] Alanine Aminotransferase 16 0 - 31 U/L [facility] Total Protein 8.1(H) 6.5 - 8.0 g/dL [facility] Albumin Level 4.0 3.5 - 5.0 g/dL [facility] Alkaline Phosphatase 67 39 - 117 U/L [facility] Blood Venous blood specimen / Unknown 07/25/2024 2:02 PM EST 07/25/2024 5:45 PM EST Lis Lau MD LAB BLOOD ORDERABLES Final Result [facility] [address] [place] [phone] from Last 3 Months Insurance MEDICARE Care Teams Car Salter Relationship Specialty Start Date End Date Lis Lau MD [address] [place] [phone] PCP - General Internal Medicine 03/28/19
--- OUTSIDE RECORDS SUMMARY | 2024-08-31 10:16 | XMS_ITS | Encounter Summary ---
Author Organization [employer] Address [address] [facility] 7t [place] [address] Care Team Providers Care Clinical Laboratory Science Professor Name Role Phone Lis Lau MD Primary Care Provider [phone] Reason for Referral * Imaging (Routine) - Authorized Specialty Diagnoses / Procedures Referred By Controsenda oneil Referred To Contact Radiology Diagnoses Transaminitis Procedures US Abdomen Complete Lis Lau MD [address] [place] [address] Phone: tel: fax: [address] Phone: tel: fax: Referral ID Status Reason Start Date Expiration Date V isits Requested Visits Authorized [id number] Authorized 07/25/2024 07/25/2025 1 1 Encounter Details Date Type Department Care Team (Late st Contact Info) Description 07/25/2024 Orders Only [facility] [address] [place] [address] Lis Lau MD [address] [place], [place] [phone] Transaminitis (Primary Dx); Encounter for screening for other viral diseases Social History Tobacco Use Types Packs/Day Years [...] Upcoming Encounters Date Type Department Care Team ([facility] st Contact Info) Description 11/15/2024 10:30 AM EDT Office Visit [facility] [address] [place] [address] Lis Lau MD [address] [place] [address] Scheduled Orders Name Type Priority Associated Diagnoses Orde r Schedule Hepatitis A,B,C Profile Lab Routine Transaminitis Encounter for screening for other viral diseases Expected: 07/25/2024, Expires: 07/25/2025 US Abdomen Complete Imaging Routine Transaminitis Expected: 07/25/2024, Expires: 07/25/2025 documented as of this encounter Visit Diagnoses Diagnosis Transaminitis- Primary Nonspecific elevation of levels of transaminase or lactic acid dehydrogenase (LDH) Encounter for screening for other viral diseases documented in this encounter Additional Health Concerns Assessment Noted Time PHQ-9 Depression Total Score: 0 07/26/19 25 2:13 PM EST documented as of this encounter Care Teams Clinical Laboratory Science Professor Relationship Specialty Start Date End Date Lis Lau MD [address] [place] [phone] PCP - General Internal Medicine 03/28/19 documented as of this encounter
--- OUTSIDE RECORDS SUMMARY | 2024-08-31 10:16 | XMS_ITS | Encounter Summary ---
Author Organization [employer] Address [address] [place] [address] 7t [place] [address] Care Team Providers Care Lead Sharepoint Developer Name Role Phone Lis Lau MD Primary Care Provider [phone] Reason for Visit * Reason Comments Med Refill Encounter Details Date Type Department Care Team ([facility] Contact Info) Description 01/21/2024 Refill [facility] [address] [place] [address] Lis Lau MD [address] [place] [address] Social History Tobacco Use Types Packs/Day Years [...] Upcoming Encounters Date Type Department Care Team ([facility] Contact Info) Description 11/15/2024 10:30 AM EDT Office Visit [facility] [address] [place] [address] Lis Lau MD [address] [place] [address] documented as of this encounter Visit Diagnoses Not on filedocumented in this encounter Care Teams Lead Sharepoint Developer Relationship Specialty Start Date End Date Lis Lau MD [address] [place] [address] PCP - General Internal Medicine 03/28/19 documented as of this encounter
--- OUTSIDE RECORDS SUMMARY | 2024-08-31 10:16 | XMS_ITS | Encounter Summary ---
Author Organization [employer] Address [address] [place] [address] 7[address] [place] [address] Care Team Providers Care Consumer Lending Manager Name Role Phone Lis Lau MD Primary Care Provider [phone] Reason for Visit * Reason Comments Med Refill Encounter Details Date Type Department Care Team ([facility] Contact Info) Description 01/08/2024 Refill [facility] [address] [place] [address] Lis Lau MD [address] [place] [address] Social History Tobacco Use Types Packs/Day Years [...] Upcoming Encounters Date Type Department Care Team ([facility] Contact Info) Description 11/15/2024 10:30 AM EDT Office Visit [facility]S [address] [place] [address] Lis Lau MD [address] [place] [address] documented as of this encounter Visit Diagnoses Not on filedocumented in this encounter Care Teams Consumer Lending Manager Relationship Specialty Start Date End Date Lis Lau MD [address] [place] [address] PCP - General Internal Medicine 03/28/19 documented as of this encounter
== END 2024-08-31 09:30 | disposition home or self-care (01) ==
LOC: HO.US 09:29
PROVIDERS: PCP Internal Medicine; Visit Provider Internal Medicine
DX: R74.01 Elevation of levels of liver transaminase levels (principal)
CPT/HCPCS: 76700

== ENCOUNTER → 2024-08-31 09:30 | Outpatient (BNV) | payer MEDICARE, SELFPAY | PROVIDERS: PCP Internal Medicine; Visit Provider Radiology Diagnostic Radiology | DX: R74.01 Elevation of levels of liver transaminase levels (principal) | CPT/HCPCS: 76700; 93975 ==

== ENCOUNTER 2024-11-03 11:22 | Emergency (ER) | payer MEDICARE, SELFPAY ==
--- NOTE | ~2024-11-03 | XR_ITS ---
EXAMINATION: XR FOREARM 2 VIEWS LEFT HISTORY: trauma, known fracture COMPARISON: There are no prior studies available for comparison. FINDINGS: AP and lateral casted views of the left forearm are submitted. The fiberglass cast tears fine bony detail. There is a transverse fracture of the distal radial metaphysis with moderate dorsal angulation of the distal fracture fragment. The patient appears to be status post resection of the trapezium. The elbow joint spaces are maintained. The soft tissues are unremarkable. XR/XR forearm LT 2V IMPRESSION: Transverse fracture of the distal radial metaphysis as described. Electronically signed by: Carlos Manuel Parra MD 11/03/2024 12:15 PM EDT
[2024-11-03 11:23] VITALS: BP 147/54; PULSE 82; RESP 18; TEMP 36.1; O2SAT 94; BMI 22.8
--- NOTE | 2024-11-03 12:25 | ED.EXTPRO ---
HPI - Extremity Problem General Chief complaint: Extremity Injury, Upper Stated complaint: needs cast removed Time Seen by Provider: 11/03/24 11:32 Source: patient, RN notes reviewed and old records reviewed Mode of arrival: ambulatory Limitations: no limitations History of Present Illness ED Provider: Edith HPI Narrative: 79-year-old female presents for evaluation of ?I need my cast removed. ? The patient initially could not remember how she fell or why she has a cast on her left wrist. I called her son, Max and he reports the patient tripped in the bathroom on October 06, 2024. She has been in a cast for about 4 weeks. She had an appointment with her primary doctor this morning at 10:15 a.m. and was referred to the ER as she requested to have her cast removed She has no pain The injury happened in [place] Related Data Allergies Allergy/AdvReac Type Severity Reaction Status Date / Time Penicillins Allergy Unknown Verified 11/03/24 11:30 Review of Systems Musculoskeletal: Musculoskeletal: Reports limited range of motion PMFSH Social History Social History Advance Directives: No Advance Directives Information Provided: Yes Physical Exam Vital Signs: Vital Signs: Last Vital Signs Temp 96.9 F 11/03/24 11:23 Pulse 82 11/03/24 11:23 Resp 18 11/03/24 11:23 BP 147/54 H 11/03/24 11:23 Pulse Ox 94 11/03/24 11:23 O2 Del Method Room Air 11/03/24 11:23 BMI result Body Mass Index 22.8 Extrem: Other: Thumb spica cast in place to left wrist Medical Decision Making Medical Decision Making [facility] Narrative: The patient remembered that she fell last month, tripped in the bathroom requiring some sutures to in the face and fracturing her left wrist. I discussed with her son, Max who informed me that the injury was on October 06, 2024. She has only been in the cast for about 4 weeks. I ordered an x-ray to evaluate the degree of injury. There is still some misalignment of the distal fracture. I will not remove the cast today and we will have the patient follow up with Orthopedics. I discussed this with the patient and her son Chandu whom she lives with. He will help schedule her follow-up. I advised her that she would likely need at least 2 more weeks of the cast and needs to follow up to evaluate if she will require surgery or not Differential Diagnosis Differential Diagnoses: The differential diagnosis associated with the presentation includes Wrist fracture Wrist sprain Forearm fracture Dislocation Independent Interpretation I performed an independent interpretation of an: Plain X-Ray Interpretation: Agree with Radiology interpretation Radiology Impression Discussion of test interpretation with radiology: I have reviewed the radiologist's reading. Radiologist Impression: FINDINGS: AP and lateral casted views of the left forearm are submitted. The fiberglass cast tears fine bony detail. There is a transverse fracture of the distal radial metaphysis with moderate dorsal angulation of the distal fracture fragment. The patient appears to be status post resection of the trapezium. The elbow joint spaces are maintained. The soft tissues are unremarkable. XR/XR forearm LT 2V IMPRESSION: Transverse fracture of the distal radial metaphysis as described. Electronically signed by: Carlos Manuel Parra MD 11/03/2024 12:15 PM EDT RP Discharge Plan Discharge Clinical Impression: Closed fracture of metaphysis of distal end of left radius Patient Disposition: Home, Self-Care Instructions: Wrist Fracture in Adults (ED) Additional Instructions: Call the number attached for orthopedic follow-up. Typically, the cast should remain for 6 weeks, solution have an additional 2 weeks remaining. Referrals: [facility] Orthopedic Surgeons [Provider Group] (left radial fracture) Print Language: Croatian
[2024-11-03 13:09] VITALS: BP 147/54; PULSE 82; RESP 18; TEMP 36.1; O2SAT 94
--- OUTSIDE RECORDS SUMMARY | 2024-11-03 14:00 | XMS_ITS | Encounter Summary ---
Author Organization [employer] [facility] Address [address] [facility] [address] [place] [address] Care Team Providers Care Chemist Enzymes Name Role Phone Lis Lau MD Primary Care Provider [phone] Encounter Details Date Type Department Care Team (Late Contact Info) Description 10/01/2022 Orders Only [facility] [address] [place] [address] Marita Carmona LPN Social History Tobacco Use [...] Care Team (Late st Contact Info) Description 12/20/2024 9:30 AM EDT Office Visit [facility] [address] [place] [address] Lis Lua MD [address] [place] [address] documented as of this encounter Visit Diagnoses Not on filedocumented in this encounter Care Teams Chemist Enzymes Relationship Specialty Start Date End Date Lis Lau MD [address] [place] [address] PCP - General Internal Medicine 03/28/19 documented as of this encounter
== END 2024-11-03 13:10 | disposition home or self-care (01) ==
PROVIDERS: Emergency Provider Emergency Medicine; PCP Internal Medicine
DX: S52.502A Unspecified fracture of the lower end of left radius, initial encounter for closed fracture (principal); M79.602 Pain in left arm; X58.XXXA Exposure to other specified factors, initial encounter; Y93.9 Activity, unspecified; Y92.9 Unspecified place or not applicable; Y99.8 Other external cause status
CPT/HCPCS: 73090; 99282; 99284

== ENCOUNTER → 2024-11-03 11:35 | Outpatient (BNV) | payer MEDICARE, SELFPAY | PROVIDERS: Emergency Provider Emergency Medicine; PCP Internal Medicine; Visit Provider Radiology Diagnostic Radiology | DX: S52.322D Displaced transverse fracture of shaft of left radius, subsequent encounter for closed fracture with routine healing (principal) | CPT/HCPCS: 73090 ==